=== PATIENT | female | born 1985 | race Caucasian/White ===

== ENCOUNTER → 2016-09-14 | Outpatient (CLI) | payer BC ==
[~2016-09-14] MED LIST: PRENTAB26 PO; SERT-234 PO; ZNTT/150 PO
[2016-09-14 16:19] LABS: HEMATOCRIT 31.6 % (37-47)
[2016-09-14 18:17] LABS: GTGD 50 Grams
== END | disposition home or self-care (01) ==
LOC: C.LAB1850 15:24
PROVIDERS: ATTEND Obstetrics & Gynecology
DX: O09.812 Supervision of pregnancy resulting from assisted reproductive technology, second trimester (principal)

== ENCOUNTER → 2016-09-14 | Outpatient (CLI) | payer BC ==
[2016-09-14 18:26] LABS: URINE APPEARANCE CLEAR (CLEAR); URINE BILIRUBIN NEG (NEG); URINE COLOR DK YELLOW; URINE EPITHELIAL CELL AUTO >30 /lpf (0-5); URINE NITRITE NEG (NEG); URINE SPECIFIC GRAVITY 1.033 (1.000-1.030); UROBILINOGEN NEG (NEG)
[2016-09-14 18:27] LABS: MANUAL MICROSCOPIC REQUIRED? NO; REVIEW REQ? YES
== END | disposition home or self-care (01) ==
LOC: C.LABSPEC 17:23
PROVIDERS: ATTEND Obstetrics & Gynecology
DX: O09.812 Supervision of pregnancy resulting from assisted reproductive technology, second trimester (principal)

== ENCOUNTER → 2016-09-29 | Outpatient (CLI) | payer BC | END | disposition home or self-care (01) | LOC: C.LAB 07:48 | PROVIDERS: ATTEND Obstetrics & Gynecology | DX: O28.1 Abnormal biochemical finding on antenatal screening of mother (principal); Z3A.00 Weeks of gestation of pregnancy not specified ==

== ENCOUNTER → 2016-11-07 | Outpatient (CLI) | payer BC | END | disposition home or self-care (01) | LOC: C.LABSPEC 13:58 | PROVIDERS: ATTEND Obstetrics & Gynecology | DX: O09.813 Supervision of pregnancy resulting from assisted reproductive technology, third trimester (principal) ==

== ENCOUNTER 2016-12-01 01:06 | Inpatient (IN) | payer BC ==
[~2016-12-01] VITALS: Ht 170.2 cm; Wt 95.2 kg
[2016-12-01] MEDS ORDERED: SERT-234 PO (01:41)
[2016-12-01] MEDS ORDERED: PRENTAB26 PO (01:41)
[2016-12-01] MEDS ORDERED: ZNTT/150 PO (01:41)
[2016-12-01 01:43] VITALS: Ht 170.2 cm; Wt 95.2 kg
[2016-12-01] MEDS ORDERED: LACTATED RINGER'S 1000ML 1,000 ML IV PRN (01:50)
[2016-12-01] MEDS ORDERED: FENTANYL 2MCG/ML ROPIV 1.25MG/ML 100ML BAG EPI ONE ×3 (02:00→10:41)
[2016-12-01] MEDS ORDERED: BUPIVACAINE 0.25% 30 ML VIAL ONE (02:00)
[2016-12-01] MEDS ORDERED: FENTANYL CITRATE INJ 50 MCG/1 ML 2 ML VIAL ONE (02:00)
[2016-12-01] MEDS ORDERED: EpHEDrine SULFATE INJ 50 MG/ML AMP ONE (02:00)
[2016-12-01] MEDS: LACTATED RINGER'S 1000ML 1,000 ML IV SCH ×3 (02:17→09:14)
[2016-12-01 02:20] LABS: HEMATOCRIT 36.7 % (37-47); MEAN CELL VOLUME 89.1 fL (80-100); MEAN CORPUSCULAR HEMOGLOBIN 30.6 pg (25-34); MEAN PLATELET VOLUME 10.1 fL (7.4-10.4); PLATELET COUNT 256 K/uL (130-400); RED BLOOD COUNT 4.12 M/uL (4.2-5.4); WHITE BLOOD COUNT 17.81 K/uL (4.8-10.8)
[2016-12-01 02:22] LABS: MEAN CORPUSCULAR HGB CONC 34.3 g/dl (32-36)
[2016-12-01] MEDS ORDERED: LACTATED RINGER'S 1000ML 500 ML IV PRN (09:31)
[2016-12-01] MEDS ORDERED: OXYTOCIN 30 UNITS/500ML NSS IV PRN ×2 (09:45→14:30)
[2016-12-01] MEDS ORDERED: HYDROCORTISONE ACETATE 25 MG SUPP PR PRN (14:30)
[2016-12-01] MEDS ORDERED: ACETAMINOPHEN 325 MG TAB PO PRN (14:30)
[2016-12-01] MEDS ORDERED: ACETAMINOPHEN/CODEINE 300/30MG TAB PO PRN ×2 (14:30)
[2016-12-01] MEDS ORDERED: SUPERCREAM 0.870 % 15GM JAR EXT PRN (14:30)
[2016-12-01] MEDS ORDERED: LANOLIN OINT EXT PRN ×2 (14:30)
[2016-12-01] MEDS ORDERED: BENZOCAINE 20% AER SPR 82.5 GM CAN EXT PRN (14:30)
[2016-12-01] MEDS ORDERED: OXYCODONE/ACETAMINOPHEN 5-325 TAB PO PRN (14:30)
--- NOTE | 2016-12-01 14:55 | DELIVERY SUMMARY ---
DATE OF OPERATION: 12/01/2016 DELIVERY NOTE DATE OF DELIVERY: 12/01/2016. Kimberly was admitted by Dr. Philippe in labor and delivery. She was initially assessed by her at sign-out at 8:30. She was dionicio on her own, had an epidural and was reported to have some intermittent variable decels. At that time I assessed her and felt she was more 5-6 cm. We initially thought of starting Pitocin however the contraction pattern improved and the heart rate tracing also had recurrent variable decels. Because of this we let her labor on her own and then she progressed to fully dilated and then she was able to push. I did discuss with the patient vacuum intervention as there were some late decels after pushing but there was good recovery and there were accels with scalp stimulation. In the end we compromised and performed a right medial lateral episiotomy to speed up delivery. This was made while pushing with scissors and then after several contractions baby was delivered. It was clear fluid at the time. Head was delivered. Mouth then nares suctioned with the bulb. Loose nuchal cord x1 passed over the head. The baby was then delivered with gentle traction. No excessive force was used. The baby placed on the maternal abdomen but did require some resuscitation so cord was clamped and cut soon afterwards. Cord gasses obtained and cord blood obtained. Placenta removed with gentle traction. The small right medial lateral episiotomy was repaired with 3-0 Vicryl. There was also a small tear in the left hymenal ring which was repaired with simple [id number] suture of 3-0 Vicryl. Sponge and instrument counts were correct. Rectal exam negative for sutures or defects. Bleeding was minimal after delivery of placenta and starting of IV Pitocin. Estimated blood loss 100 mL. eta: Baby ended up with a right pneumothorax and was eventually transferred to [place]. I attest to the content of the Intraoperative Record and any orders documented therein. Any exceptions are noted below. MTDD
--- NOTE | 2016-12-01 16:44 | Anesthesia Procedure Note ---
Anesthesia Epidural Removal Nt Date & Time December 01, 2016 at 16:44 Vital Signs Pain Intensity: 0.0 Notes Mental Status: alert / awake / arousable, participated in evaluation Nausea / Vomiting: adequately controlled Pain: adequately controlled Airway Patency, RR, SpO2: stable & adequate BP & HR: stable & adequate Hydration State: stable & adequate Neuraxial Anesthesia: was administered, sensory block is resolving Anesthetic Complications: no major complications apparent, pt satisfied with anesthetic care Epidural: removed without complications, with tip intact
[2016-12-01] MEDS: IBUPROFEN 600 MG TAB PO PRN ×2 (17:07→21:11)
[2016-12-01 19:35] VITALS: BP 115/78; PULSE 90; TEMP 36.5; O2SAT 97
[2016-12-01] MEDS: SERTRALINE HCL 100 MG TAB PO SCH (19:39)
[2016-12-01] MEDS: DOCUSATE SODIUM 100 MG CAP PO SCH (21:11)
[2016-12-01 23:45] VITALS: BP 118/82; PULSE 85; TEMP 36.6
[2016-12-02 04:10] VITALS: BP 126/82; PULSE 78; TEMP 36.6
[2016-12-02] MEDS: IBUPROFEN 600 MG TAB PO PRN ×2 (04:22→08:54)
[2016-12-02 06:26] LABS: HEMATOCRIT 34.4 % (37-47)
[2016-12-02 07:15] VITALS: BP 133/93; PULSE 82; TEMP 36.6
[2016-12-02] MEDS: SERTRALINE HCL 100 MG TAB PO SCH (07:50)
[2016-12-02] MEDS: DOCUSATE SODIUM 100 MG CAP PO SCH (07:50)
--- NOTE | 2016-12-02 07:55 | Progress Note ---
Subjective December 02, 2016. Subjective conversation w/ patient, chart review, lab review Ambulation: ambulating normally Voiding: no voiding problems Passing Gas: Yes Diet Tolerance: Regular Diet Lochia: Moderate Objective Vital Signs Date Time Temp Pulse Resp B/P Pulse Ox O2 Delivery O2 Flow Rate FiO2 12/02/16 04:10 36.6 78 18 126/82 Room Air 12/01/16 23:45 Room Air 12/01/16 23:45 36.6 85 18 118/82 Room Air 12/01/16 19:35 36.5 90 20 115/78 97 Room Air 12/01/16 19:35 97 Room Air Physical Exam General Appearance: WELL-APPEARING Abdomen: non tender Fundus: Firm Extremities: no calf tenderness Laboratory Results Last 24 Hours Test 12/02/16 05:58 Hemoglobin 11.4 g/dL Hematocrit 34.4 % Assessment and Plan Post- Day#: 1 Continue Routine Care: Home as wishes to see baby in [place]
--- NOTE | 2016-12-02 07:56 | Discharge Instructions ---
Discharge Instructions Date of Service December 02, 2016. Admission Reason for Admission: Labor Check Discharge Discharge Diagnosis / Problem: labor and delivery Discharge Goals Goal(s): Routine recovery after delivery Activity Recommendations Activity Limitations: per Instructions/Follow-up section . Instructions / Follow-Up Instructions / Follow-Up ACTIVITY RECOMMENDATIONS: * Gradual return to full activity over the next 2-3 weeks. * No lifting - nothing heavier than baby over the next 2-3 weeks. * Do not engage in vigorous exercise, sexual activity or sports until cleared by your physician. * Do not drive or operate any motorized equipment until cleared by your physician. * You may shower/bathe daily. MEDICATIONS: For discomfort or pain, you may use Acetaminophen (Tylenol), Ibuprofen (Advil), or Naproxen (Aleve) following the package directions. For constipation you may use Colace following the package directions. BREAST CARE: If you are not breast feeding: * Wear a supportive bra 24 hours a day for one to two weeks. * Avoid stimulating your breasts and nipples as much as possible during the first few weeks after delivery. * When taking a shower, have the warm water hit your back, not breasts. * When your breasts feel full, apply ice packs. Usually three to four times a day helps ease the discomfort. * Take a mild pain medication (Tylenol / Motrin) when you are uncomfortable. If breast feeding: * Use breast milk to lubricate nipples. Lansinoh cream may be used for sore nipples. You do not need to remove cream prior to breast feeding. If using a different brand of cream, check the label for directions regarding removal of cream prior to nursing. * Wear a supportive bra. * If having problems with breasts or breast feeding, call a accounting consultant or your health care provider. EPISIOTOMY CARE: After delivery, if you have an episiotomy (stitches), the following steps will ease discomfort and aid healing. * For the first 24 hours after delivery, place ice packs next to your episiotomy to help reduce swelling. * After the first 24 hour-period, sitz baths, either portable or in the tub, are suggested. A shower with a shower arm sprayed over the episiotomy may be comforting. * Sada care should be done after each voiding and bowel movement. Squirt warm water from a plastic bottle over the perineum (region of the body between the anus and urinary opening) and pat dry. * Use Dermoplast to ease discomfort. Shake container. [place] directly over the episiotomy. Place a Tucks on a clean sanitary pad next to your episiotomy. SPECIAL CARE INSTRUCTIONS: When you are discharged from the hospital, it is important for you to follow the instructions listed below: * During the first week at home, you should be able to care for yourself and your baby. In addition, the usual light household activities are encouraged. * Limit your activities to the way you feel. Do not try to clean the house or move furniture. Be sensible. * If you actively engage in sports and have done so up until the time of your delivery, you may resume these activities as soon as you feel able. This may take up to one month or even longer. Use good judgment. * Continue to take your vitamins for at least six weeks after the of your baby. * Your diet need not be limited unless you were on a special diet before your delivery. Breast-feeding mothers need around 2500 calories per day and at least 64-80 ounces of fluid per day (8 to 10 glasses). * You should eat foods from the four major food groups. Crash diets or fad diets are to be avoided. Eating lean meats, fresh fruits and vegetables, low-fat dairy products, high fiber foods and a regular exercise program, will help you get back to your pre- weight without putting your health at risk. * Constipation is sometimes a problem after delivery. Take a mild laxative as needed. If breast feeding, Milk of Magnesia is acceptable to use. You may use a suppository or Fleets enema if no episiotomy. * A daily shower or tub bath is suggested. Be sure to thoroughly and gently dry the perineum. * A bloody vaginal discharge will usually continue until around four weeks post . A small amount of bleeding may continue for as long as six weeks. Vaginal discharge changes from the bright red bleeding after delivery to pink then brownish and finally yellowish-pink before becoming white and disappearing. * Bleeding may increase with activity. Your first period may come in 4-8 weeks. If you are breast feeding, your period may be delayed even longer. * [place] (sex) can begin whenever both you and your partner feel comfortable and do not have any form of genital infection. It is recommended that you wait at least six weeks for internal and external healing to occur. If you have questions, please talk to your health care practitioner. A condom should be used to prevent infection and . * Foreplay, gentle intercourse and lubrication is very important the first several times to prevent pain. A water-based lubricant such as K-Y jelly or Astroglide may be used. * If you have RH negative blood and your baby is RH positive, you will receive RHOGAM by injection prior to discharge. The nurse will give you a card to keep with you that has the date and place that you received RHOGAM after delivery. * During your care, you had a Rubella screen done to check for the presence of rubella antibodies in your blood. If your test was negative, you will receive a Rubella vaccine prior to discharge. This vaccine may cause a fever, soreness at the injection site and flu-like symptoms. If these symptoms persist, notify your health care practitioner. is not advised for one month after a Rubella vaccine. * Verbalizes understanding of car seat law as reviewed with patient nursing. * Car Seat hand-out given and reviewed with patient by nursing. * Shaken baby information reviewed with patient by nursing. Call you doctor if: * Heavy bleeding (saturating several pads an hour) or passing clots the size of your fist. * A fever >101 degrees F (38.3 degrees C) on two occasions four hours apart and /or chills. * Unusual pain in the pelvic or vaginal areas. * "Baby Blues" lasting longer than two weeks. If you have any questions or concerns, call your health care practitioner at . FOLLOW UP VISIT: * Please call the office at to schedule a 6 week examination. It is important you keep this appointment. It is important for you to make arrangements for either yearly or twice yearly check-ups thereafter. Current Hospital Diet Patient's current hospital diet: Regular OB Diet Discharge Diet Recommended Diet: Regular OB Diet Pending Studies Studies pending at discharge: no Medical Emergencies . Who to Call and When: Medical Emergencies: If at any time you feel your situation is an emergency, please call 911 immediately. . Non-Emergent Contact Non-Emergency issues call your: Magazine Worker . . "Provider Documentation" section prepared by Cristian Linares. . VTE Core Measure Inpt VTE Proph given/why not?: Treatment not indicated
[2016-12-02] MEDS ORDERED: PRENATAL VITAMIN TAB PO SCH (08:00)
[2016-12-02 09:53] VITALS: BP_DIAS 93; PULSE 82; TEMP 36.6
[2016-12-02] MEDS ORDERED: BISACODYL 5 MG TABEC PO SCH (20:00)
[2016-12-03] MEDS ORDERED: BISACODYL 10 MG SUPP PR PRN (07:00)
== END 2016-12-02 10:00 | disposition home or self-care (01) | DRG 775 ==
LOC: C.LD 01:06 → C.OPB 01:06 → C.LD 01:10 → C.OPB 01:53 → C.LD 01:53 → C.OBG 19:05 → EDSTATUS 12-03 01:05
PROVIDERS: ADMIT Obstetrics & Gynecology; ATTEND Obstetrics & Gynecology
PROC: 0W8NXZZ Division of Female Perineum, External Approach (ICD-10-PCS; principal; 2016-12-01)
PROC: 0UQGXZZ Repair Vagina, External Approach (ICD-10-PCS; principal; 2016-12-01)
PROC: 10E0XZZ Delivery of Products of Conception, External Approach (ICD-10-PCS; principal; 2016-12-01)
DX: O76 Abnormality in fetal heart rate and rhythm complicating labor and delivery (principal); O71.4 Obstetric high vaginal laceration alone; O69.81X0 Labor and delivery complicated by cord around neck, without compression, not applicable or unspecified; Z3A.35 35 weeks gestation of pregnancy; Z37.0 Single live birth

== ENCOUNTER → 2017-01-11 | Outpatient (CLI) | payer BC | END | disposition home or self-care (01) | LOC: C.PAPS 14:25 | PROVIDERS: ATTEND Obstetrics & Gynecology | DX: Z01.419 Encounter for gynecological examination (general) (routine) without abnormal findings (principal) ==

== ENCOUNTER → 2017-02-11 | Outpatient (CLI) | payer BC ==
[2017-02-12 06:28] LABS: HEP C SIGNAL TO CUTOFF RATIO 0.02 (LESS THAN 1.0)
== END | disposition home or self-care (01) ==
LOC: C.LAB 07:15
PROVIDERS: ATTEND Obstetrics & Gynecology Reproductive Endocrinology
DX: Z11.3 Encounter for screening for infections with a predominantly sexual mode of transmission (principal); Z11.4 Encounter for screening for human immunodeficiency virus [HIV]

== ENCOUNTER 2019-01-19 23:54 | Inpatient (IN) ==
[2019-01-20] MEDS ORDERED: OXYTOCIN 30 UNITS/500 ML BAG IV PRN ×3 (00:19→07:09)
--- NOTE | 2019-01-20 00:30 | History & Physical Report ---
Date of Service January 20, 2019 Assessment & Plan (1) 40 weeks gestation of : fetus overall category one. plan to admit. expectant management. epidural if desires. arom/pit as indicated. anticipate . last baby was 5#4oz, efw 6-7 for this baby. Continue to monitor closely. (2) Normal labor: History of Present Illness Chief Complaint: contractions Primary Care Provider: Trenton Alas Patient is a 33yowf with iup at 40 4/7 weeks by excellent dating as ivf/icsi . Presents with contractions, now q 3 min. no vb/lof. +fm. this baby has same genetic makeup as her first child. has been uncomplicated. Partner is October. labs--B-/ab-/pap nl/ri/rprnr/hepb-/hiv-/gc/ct-/cf neg/ gtt x 2 wnl/gbs neg. Growth scans have been wnl and testing normal as well. Allergies Allergy/AdvReac Type Severity Reaction Status Date / Time cefaclor Allergy Unknown HIVES Verified 01/20/19 00:18 Penicillins Allergy Unknown HIVES Verified 01/20/19 00:18 Home Medications Home Medications Medication Instructions Recorded Confirmed Type Multivit/Min/Iron/Fol Ac/Pren 1 tab PO DAILY #0 tab 12/01/16 History ( Vitamin) Ranitidine (Zantac) 1 tab PO BID 30 Days #60 tab 12/01/16 History Sertraline (Zoloft) 1 tab PO DAILY 90 Days #90 tab 12/01/16 History Patient History Medical History Acid reflux Anxiety History of varicella No significant past medical history Surgical History [place] teeth extracted Social History Current Living Situation: Family Feels Safe at Home: Yes Smoking Status: Former smoker OB History g1--12/12, , 5#4oz, 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
[2019-01-20] MEDS: LACTATED RINGER'S 1,000 ML IV PRN ×3 (00:38→04:47)
[2019-01-20 00:39] LABS: Hematocrit (blood only) 32.5 % (37-47); Mean Corpuscular Volume 83.1 fL (80-100); Platelet Count 257 K/uL (130-400); RDW Coefficient of Variation 14.3 % (11.5-14.5); RDW Standard Deviation 42.8 fL (36.4-46.3); Red Blood Count 3.91 M/uL (4.2-5.4)
[2019-01-20 00:41] LABS: Mean Corpuscular Hgb Conc 33.8 g/dL (32-36)
[2019-01-20] MEDS ORDERED: BUPIVACAINE 0.25% 30 ML VIAL ONE ×2 (01:19→04:14)
[2019-01-20] MEDS ORDERED: ePHEDrine sulfate 50 MG/ML AMP ONE (01:20)
[2019-01-20] MEDS ORDERED: fentaNYL 2MCG/ML ROPIV 1.25MG/ML 100 ML BAG EPI ONE (01:20)
[2019-01-20] MEDS ORDERED: fentaNYL citrate 100 MCG/2 ML VIAL ONE ×2 (01:20→04:16)
--- NOTE | 2019-01-20 02:28 | Anesthesiology Consultation ---
Date of Service January 20, 2019 Assessment & Plan (1) Encounter for pre-operative examination: Chart Review Chart Review: Patient NOT seen in Pre Admission Testing and Acceptable Risk for Labor Epidural Consults Requested none ASA ASA2 Proposed Anesthesia Anesthesia Type: Labor Epidural History Height/Weight Height: 5 ft 7 in Weight: 98.066 kg Allergies Allergy/AdvReac Type Severity Reaction Status Date / Time cefaclor Allergy Unknown HIVES Verified 01/20/19 00:18 Penicillins Allergy Unknown HIVES Verified 01/20/19 00:18 Medications Home Medications Medication Instructions Recorded Confirmed Last Taken Multivit/Min/Iron/Fol Ac/Pren 1 tab PO DAILY #0 tab 12/01/16 01/20/19 01/19/19 07:00 ( Vitamin) Ranitidine (Zantac) 1 tab PO BID 30 Days #60 tab 12/01/16 01/20/19 01/19/19 07:00 Sertraline (Zoloft) 1 tab PO DAILY 90 Days #90 tab 12/01/16 01/20/19 01/19/19 07:00 Active Medications Generic Name Dose Route Start Last Admin Trade Name Freq PRN Reason Stop Dose Admin Lactated Ringer's 1,000 mls @ 125 mls/hr 01/20/19 00:19 01/20/19 01:55 Lr IV 01/22/19 00:18 125 mls/hr .Q8H PRN Administration L&D Protocol Protocol Past Medical History Medical History Acid reflux Anxiety History of varicella No significant past medical history Past Surgical History Surgical History [place] teeth extracted Social History Smoking Status: Former smoker tobacco type: cigarettes Hx Alcohol Use: No Hx Substance Use: No substance use type: does not use Physical Exam Vital Signs Last Vital Signs Temp 36.4 C L 01/20/19 00:35 Pulse 74 01/20/19 02:24 Resp 18 01/20/19 00:35 BP 124/72 01/20/19 02:22 Pulse Ox 98 01/20/19 02:24 Testing Laboratory Results 01/20/19 00:26
[2019-01-20] MEDS ORDERED: ONDANSETRON INJ 2 MG/ML 2 ML VIAL IV PRN ×2 (02:34→05:30)
[2019-01-20] MEDS ORDERED: NALBUPHINE HCL INJ 10 MG/ML AMP IV PRN ×2 (02:34→05:30)
[2019-01-20] MEDS ORDERED: DiphenhydrAMINE HCL 50 MG/ML VIAL IV PRN ×2 (02:34→05:30)
[2019-01-20] MEDS ORDERED: NALOXONE HCL 1 MG in SODIUM CHLORIDE 0.9% 1000ML 1,000 ML IV PRN ×2 (02:34→05:30)
[2019-01-20] MEDS ORDERED: ePHEDrine sulfate 50 MG/ML AMP IV PRN ×2 (02:34→05:30)
[2019-01-20] MEDS ORDERED: fentaNYL 2MCG/ML ROPIV 1.25MG/ML 100 ML BAG EPI PRN ×2 (02:34→05:30)
[2019-01-20] MEDS ORDERED: NALOXONE HCL 0.4 MG/1 ML VIAL/CARP IV PRN ×2 (02:34→05:30)
--- NOTE | 2019-01-20 03:28 | Labor Progress Brief Note ---
Date of Service January 20, 2019 Subjective comfortable after epidural Assessment & Plan (1) 40 weeks gestation of : continue current management. fetus category two but overall reassuirng. anticipate . Physical Exam Constitutional: WD/WN, vitals as above Genitourinary: cx--/-2 arom--? thin green mec toco--q2-4min efm--130s wtih mod variability, small accels, variable/early with contractions Results & Data Vital Signs (Past 12 Hours) Vital Signs Temp Pulse Resp BP Pulse Ox 01/20/19 03:25 81 110/75 01/20/19 03:24 84 97 01/20/19 03:19 91 H 96 01/20/19 03:14 76 96 01/20/19 03:09 63 16 109/62 96 01/20/19 03:04 62 96 01/20/19 02:59 69 97 01/20/19 02:54 101 H 107/63 97 01/20/19 02:49 81 97 01/20/19 02:44 66 97 01/20/19 02:39 66 16 116/73 97 01/20/19 02:34 87 98 01/20/19 02:29 93 H 98 01/20/19 02:24 74 98 01/20/19 02:22 67 18 124/72 01/20/19 02:19 69 97 01/20/19 02:16 79 118/75 01/20/19 02:14 75 98 01/20/19 02:11 75 121/78 01/20/19 02:09 71 97 01/20/19 02:06 73 123/78 01/20/19 02:04 82 97 01/20/19 02:02 75 94 01/20/19 02:01 77 18 129/77 01/20/19 01:59 65 99 01/20/19 01:58 68 123/78 01/20/19 01:54 71 97 01/20/19 01:49 70 100 01/20/19 01:44 73 100 01/20/19 01:39 80 99 01/20/19 01:33 77 98 01/20/19 00:37 77 94 01/20/19 00:36 66 94 01/20/19 00:35 36.4 C L 82 18 93 01/20/19 00:32 82 93 01/20/19 00:30 81 94 01/20/19 00:27 66 96 01/20/19 00:24 78 94 01/20/19 00:22 69 96 01/20/19 00:17 82 95 01/20/19 00:05 81 121/82
[2019-01-20] MEDS ORDERED: Nursing to Pharmacy Communication ONE (04:02)
[2019-01-20] MEDS ORDERED: OXYCODONE/ACETAMINOPHEN 5mg/325mg TAB PO PRN (06:30)
[2019-01-20 06:43] LABS: CO2 Cord Arterial Blood 75 mmHg (39.1-73.5); HCO3 Cord Arterial Blood 24 mmol/L (19.7-28.5); pH Cord Arterial Blood 7.12 (7.1-7.38)
[2019-01-20] MEDS ORDERED: HYDROCORTISONE ACETATE 25 MG SUPP PR PRN (06:46)
[2019-01-20] MEDS ORDERED: DIPHTHERIA/TETANUS/PERTUSSIS 0.5 ML SYR/VIAL IM ONE (06:46)
[2019-01-20] MEDS ORDERED: BISACODYL 10 MG SUPP PR PRN (06:46)
[2019-01-20] MEDS ORDERED: SUPERCREAM 0.870% 15 GM JAR EXT PRN (06:46)
[2019-01-20] MEDS ORDERED: BENZOCAINE 20% AER SPR 82.5 GM CAN EXT PRN (06:46)
[2019-01-20 06:47] LABS: Base Excess Cord Venous Blood -3.3 mEq/L (-7.7-1.9); Cord Venous Blood HCO3 24 mmol/L (18.4-26.8); Cord Venous Blood PCO2 49 mmHg (30.4-57.2); Cord Venous Blood PO2 25 mmHg (14.1-43.3)
[2019-01-20 06:50] LABS: O2 Saturation Cord Venous Bld < 60.0 % (<68)
--- NOTE | 2019-01-20 07:02 | Delivery Summary ---
DATE OF OPERATION: 01/20/2019 PREOPERATIVE DIAGNOSES: 1. Intrauterine at 40+ weeks. 2. Active labor. 3. In vitro fertilization . POSTOPERATIVE DIAGNOSES: 1. Intrauterine at 40+ weeks. 2. Active labor. 3. In vitro fertilization . 4. Meconium stained fluid. PROCEDURES: 1. Epidural anesthesia. 2. Amniotomy. 3. Normal spontaneous vaginal delivery. 4. Second-degree perineal laceration with repair. SURGEON: Candy Weiner MD ANESTHESIA: Epidural. ESTIMATED BLOOD LOSS: 400 mL. DESCRIPTION OF PROCEDURE: The patient presented to labor and delivery in early active labor at 40+ weeks. She was admitted. She underwent an epidural anesthetic and then an amniotomy for a thinly stained meconium fluid. Throughout her labor, the patient had a category 2 strip with the baseline in the 120s to 130s with good variability but variable/early with contractions. She got an epidural and then had a redose of her epidural, progressed to complete-complete and +3 station and pushed for approximately 3 contractions to deliver a viable male in JOANNE presentation. The fht werein the 80s during this time. There was no nuchal cord. The shoulders and body were then immediately delivered and a large amount of thick brown meconium stained fluid was delivered after the baby. The was placed on the maternal abdomen for drying and attention, but required further evaluation. So the cord was clamped and cut and the was taken over to the awaiting pediatric nursing for drying and attention. Cord blood and cord gases were obtained. Placenta was delivered spontaneously intact with a 3-vessel cord. Cervix, sulci, and rectum were examined and found to be intact. A small second-degree laceration was identified and repaired in normal standard fashion with 3-0 Vicryl. Hemostasis was obtained with dilute Pitocin and fundal massage. Estimated blood loss was 400 mL. Apgars pending. Mother doing well at the end of the delivery. Baby was taken to the nursery for further evaluation. I attest to the content of the Intraoperative Record and any orders documented therein. Any exceptions are noted below. MTDD
--- NOTE | 2019-01-20 07:28 | Anesthesia Procedure Note ---
Date of Service January 20, 2019 Anesthesia Post Epidural Note Vital Signs Vital Signs: Temp Pulse Resp BP Pulse Ox 36.8 C 93 H 18 107/62 98 01/20/19 04:40 01/20/19 07:27 01/20/19 04:40 01/20/19 07:27 01/20/19 06:24 Pain Intensity Bilateral Lower Abdomen: Pain Intensity: 8 Notes Mental Status: alert / awake / arousable and participated in evaluation Nausea / Vomiting: adequately controlled Pain: adequately controlled Airway Patency, RR, SpO2: stable & adequate BP & HR: stable & adequate Hydration State: stable & adequate Neuraxial Anesthesia: was administered and sensory block is resolving Anesthetic Complications: no major complications apparent Epidural: Removed without complications and With tip intact
[2019-01-20] MEDS: PRENATAL VITAMIN 1 TAB PO SCH (08:06)
[2019-01-20] MEDS: SERTRALINE HCL 100 MG TABLET PO SCH (08:06)
[2019-01-20] MEDS: DOCUSATE SODIUM 100 MG CAP PO SCH ×2 (08:06→20:38)
[2019-01-20] MEDS: IBUPROFEN 600 MG TAB PO PRN ×3 (10:24→22:38)
[2019-01-20] MEDS: ACETAMINOPHEN 325 MG TAB PO PRN (19:17)
[2019-01-21] MEDS: ACETAMINOPHEN 325 MG TAB PO PRN ×2 (03:33→08:31)
--- NOTE | 2019-01-21 06:03 | Obstetrical Progress Note ---
Date of Service <Charles Jose Raul Prieto - Last Filed: 01/21/19 06:02> January 21, 2019 Assessment & Plan <Charles JesseRaghavendra PrietoDO - Last Filed: 01/21/19 06:02> (1) (spontaneous vaginal delivery): -vital signs reviewed and WNL -last Hgb 11.0 -Blood type: B-, GBS-, Rubella Immune -pt doing well clinically -encourage ambulation, monitor and control pain with motrin tylenol, cont regular diet, monitor lochia -cont encourage breast feeding -anticipate d/c tomorrow Subjective <Charles CRaghavendra Prieto - Last Filed: 01/21/19 06:02> 33 y/o PPD1 found in bed this morning in NAD. Reports no acute overnight events. Pt states that she has no pain other than appropriate soreness. Tolerating PO intake without N/V. Able to ambulate without issue. She is breast feeding without issue. No issues with voiding, able to have small BM. Pt notes complaints of ongoing ringing of ear s/p , but denies ear pain or d/c. No other acute concerns or complaints. Review of Systems All systems reviewed & are unremarkable except as noted in HPI & below Physical Exam <Charles Jose Raul PrietoDO - Last Filed: 01/21/19 06:02> Constitutional WD/WN, vitals as above Respiratory normal respiratory effort, lungs clear to auscultation Cardiovascular RRR, no murmur, no edema Gastrointestinal (Abdomen) mild abd tenderness Fundus at U, please correlate with attending findings Skin no rashes, warm and dry Psychiatric A+Ox3, euthymic affect Lymphatic no LE swelling, no calf tenderness Results & Data <Charles Jose Raul Prieto, - Last Filed: 01/21/19 06:02> Vital Signs (Past 12 Hours) Vital Signs Temp Pulse Resp BP BP Pulse Ox 01/21/19 03:30 36.4 C L 81 16 139/77 98 01/20/19 22:30 36.3 C L 74 122/73 97 01/20/19 20:20 36.6 C 83 16 125/67 98 Laboratory Results Laboratory Results - last 24 hr 01/20/19 01/20/19 06:07 06:07 Cord ABG pH 7.12 Cord ABG pCO2 75 H Cord ABG pO2 23.0 Cord ABG HCO3 24 Cord ABG Base Excess -8.0 Cord ABG O2 Sat < 60.0 Cord VBG pH 7.30 Cord VBG pCO2 49 Cord VBG pO2 25 Cord VBG HCO3 24 Cord VBG Base Excess -3.3 Cord VBG O2 Sat < 60.0 Barometric Pressure 729.1 729.1 Blood Gas Comments CANALES CANALES Medications Administered Current Inpatient Medications Acetaminophen (Tylenol) 650 mg PO Q6H PRN PRN Reason: Pain/ABREU/Fever Stop: 02/19/19 06:29 Last Admin: 01/21/19 03:33 Dose: 650 mg Documented by: Benzocaine (Dermoplast Pain Relieving [place]) 1 appln EXT PRN PRN PRN Reason: Perineal Discomfort Stop: 02/19/19 06:45 Last Admin: 01/20/19 10:27 Dose: 82.5 appln Documented by: Bisacodyl (Dulcolax) 5 mg PO 2000 [facility] Stop: 01/21/19 20:01 Bisacodyl (Dulcolax) 10 mg LA DAILY PRN PRN Reason: No BM on 2nd post- day Stop: 02/19/19 06:45 Cocaine HCl (Supercream 0.870%) 1 gm EXT BID PRN PRN Reason: Hemorrhoidal Inflammation Stop: 02/03/19 06:45 Last Admin: 01/20/19 10:27 Dose: 15 gm Documented by: Docusate Sodium (Colace) 100 mg PO BID [facility] Stop: 02/19/19 08:59 Last Admin: 01/20/19 20:38 Dose: 100 mg Documented by: Hydrocortisone (Anusol Hc) 25 mg LA BID PRN PRN Reason: Hemorrhoidal Inflammation Stop: 02/19/19 06:45 Oxytocin (Pitocin) 30 units in 500 mls @ 333.333 mls/hr IV .Q1H30M PRN; Protocol PRN Reason: Bleeding Control Stop: 02/19/19 06:45 Last Admin: 01/20/19 06:09 Dose: 20 units/hr, 333.3 mls/hr Documented by: Oxytocin (Pitocin) 30 units in 500 mls @ 333.333 mls/hr IV .Q1H30M PRN; Protocol PRN Reason: Bleeding Control Stop: 02/19/19 07:08 Ibuprofen (Motrin) 600 mg PO Q4H PRN PRN Reason: Pain/ABREU/Cramping/Fever Stop: 02/19/19 06:29 Last Admin: 01/20/19 22:38 Dose: 600 mg Documented by: Oxycodone/Acetaminophen (Percocet 5mg/325mg) 1 tab PO Q4H PRN PRN Reason: Pain not relieved by... Stop: 02/03/19 06:29 Prenat Multivit/Moffat/Iron/Folic Ac ( Vitamin) 1 tab PO QAM ANNIE Stop: 02/19/19 08:59 Last Admin: 01/20/19 08:06 Dose: 1 tab Documented by: Sertraline HCl (Zoloft) 100 mg PO DAILY [facility] Stop: 02/19/19 08:59 Last Admin: 01/20/19 08:06 Dose: 100 mg Documented by: <Alka Philippe MD - Last Filed: 01/21/19 07:51> Co-Signing Physician Notes I have reviewed the resident's note and examined the patient myself, and agree with the note above. I did discuss the patient's head/neck discomfort and tinnitus with her this morning. The head/neck pain are improved reliably with motrin and heat, and are likely musculoskeletal from the pushing phase and/or positioning and unfamiliar bed in the area. This can be managed with NSAID and comfort measures as currently. Doubt involvement of epidural given the non-positional nature of her issues. The tinnitus is a bit tougher to address as it has so many possible causes, and there isn't direct management that can be prescribed or recommended other than to wait it out. It is not accompanied by loss of hearing, ear pain, or any other symptom. It is bilateral and has been since onset. There is not likely to be a drug toxicity as she has received only normal/recommended doses of all agents, no localizing neurologic symptoms to suggest a lesional etiology, etc. The patient and I are both hoping it will simply resolve with time, and if it persists after she is home for a day or two, understands that I do recommend following up with PCP for further workup. She is agreeable to this. Resident Activity Tracking <Charles Prieto DO - Last Filed: 01/21/19 06:02> Resident Involvement: Resident Care Provided Care Provided: OB Delivery
[2019-01-21] MEDS: DOCUSATE SODIUM 100 MG CAP PO SCH (08:31)
[2019-01-21] MEDS: PRENATAL VITAMIN 1 TAB PO SCH (08:31)
[2019-01-21] MEDS: SERTRALINE HCL 100 MG TABLET PO SCH (08:31)
[2019-01-21] MEDS ORDERED: BISACODYL 5 MG TABEC PO SCH (20:00)
== END 2019-01-21 13:30 | disposition home or self-care (01) | DRG 807 ==
LOC: OPB 23:54 → 4S1 01-20 00:01 → 4S2 01-20 10:12